=== PATIENT | female | born 1955 | race Caucasian/White ===

== ENCOUNTER 2016-04-01 11:21 | Emergency (ER) | payer OTHER ==
[~2016-04-01] VITALS: Ht 157.5 cm; Wt 107.0 kg
[~2016-04-01 11:21] MED LIST: ASPI81TA11 PO; BENA25TA8 PO; BUSP10 PO; LEXA10TA PO
[2016-04-01 11:38] VITALS: BP 131/80; PULSE 62; RESP 16; TEMP 97.4; O2SAT 95
[2016-04-01] MEDS ORDERED: LEXA10TA PO (11:51)
[2016-04-01] MEDS ORDERED: SLEEPING PILL (11:51)
[2016-04-01] MEDS ORDERED: BUSP10TA PO (11:51)
[2016-04-01] MEDS ORDERED: MECLIZINE HCL 25 MG TAB PO ONE (12:15)
[2016-04-01] MEDS ORDERED: MECL-62 PO (12:21)
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
--- NOTE | 2016-04-02 12:50 | EKG ---
Date Performed: 04/01/2016 Time Performed: 12:08:22 PTAGE: 60 years EKG: Sinus bradycardia Normal ECG except for rate NO PREVIOUS TRACING DOCTOR: Tj Quispe Interpretating Date/Time 04/02/2016 12:48:55
== END 2016-04-01 12:37 | disposition home or self-care (01) ==
LOC: PHED 11:21
DX: H81.13 Benign paroxysmal vertigo, bilateral (principal); Z87.39 Personal history of other diseases of the musculoskeletal system and connective tissue; Z86.59 Personal history of other mental and behavioral disorders; Z87.2 Personal history of diseases of the skin and subcutaneous tissue
CPT/HCPCS: 93005